=== PATIENT | male | born 1990 | race Two or more races ===

== ENCOUNTER 2016-11-14 12:07 | Emergency (ER) | payer SELFPAY ==
[2016-11-14] MEDS ORDERED: PREDNISONE 20 MG TABLET ONE (12:37)
[2016-11-14] MEDS ORDERED: METHOCARBAMOL 750 MG TABLET ONE (12:37)
== END 2016-11-14 12:59 | disposition home or self-care (01) ==
LOC: ED 12:07
DX: M54.5 Low back pain (principal)
CPT/HCPCS: 99283 ×2; J7512; A9270